=== PATIENT | male | born 2000 | race Caucasian/White ===

== ENCOUNTER 2022-01-09 19:02 | Emergency (ER) | payer MEDICAID ==
[~2022-01-09] VITALS: Ht 165.1 cm; Wt 63.6 kg
[2022-01-09] MEDS ORDERED: PERTUSS(ACELL),DIPH,TET VAC/PF 0.5 ML SYRINGE IM. ONE (20:15)
[2022-01-09] MEDS ORDERED: IBUPROFEN 600 MG TABLET PO ONE (20:15)
[2022-01-09] MEDS ORDERED: CEPH-558 PO (20:50)
[2022-01-09] MEDS ORDERED: DOXY-354 PO (20:50)
[2022-01-09 21:00] VITALS: BP 133/67
== END 2022-01-09 22:21 | disposition home or self-care (01) ==
LOC: EMS 19:24
DX: S91.332A Puncture wound without foreign body, left foot, initial encounter (principal); W56.81XA Bitten by other nonvenomous marine animals, initial encounter; Y93.89 Activity, other specified; Y92.89 Other specified places as the place of occurrence of the external cause; Y99.8 Other external cause status
CPT/HCPCS: 90471; 90715; 99283

== ENCOUNTER 2024-07-26 16:16 | Emergency (ER) | payer MEDICAID, OTHER ==
[~2024-07-26] VITALS: Ht 170.2 cm; Wt 61.4 kg
[~2024-07-26 16:16] MED LIST: CEPH-558 PO; DOXY-354 PO
[2024-07-26 16:21] VITALS: TEMP 98
[2024-07-26] MEDS ORDERED: TOBR5DRO44 OS (18:10)
[2024-07-26 18:43] VITALS: BP 119/79; PULSE 61; RESP 16; O2SAT 100
== END 2024-07-26 18:45 | disposition home or self-care (01) ==
LOC: EMS 16:16
DX: S05.02XA Injury of conjunctiva and corneal abrasion without foreign body, left eye, initial encounter (principal); W22.8XXA Striking against or struck by other objects, initial encounter; Y93.89 Activity, other specified; Y92.89 Other specified places as the place of occurrence of the external cause; Y99.8 Other external cause status
CPT/HCPCS: 99283; Z7502